=== PATIENT | male | born 1955 | race Two or more races ===

== ENCOUNTER 2017-03-19 15:43 | Emergency (ER) | payer MEDICARE, MEDICAID ==
[~2017-03-19] VITALS: Ht 167.6 cm; Wt 99.8 kg
[2017-03-19 15:53] VITALS: BP 131/75
[2017-03-19] MEDS ORDERED: IBUPROFEN 600 MG TABLET PO ONE ×2 (16:51→17:00)
[2017-03-19] MEDS ORDERED: HYDROCODONE/APAP 10/325MG 1 EA TABLET ONE (16:51)
[2017-03-19] MEDS ORDERED: HYDROCODONE/APAP 10/325MG 1 EA TABLET PO ONE (17:00)
== END 2017-03-19 17:17 | disposition home or self-care (01) ==
LOC: ER 15:55
DX: M54.5 Low back pain (principal); I11.0 Hypertensive heart disease with heart failure; I50.9 Heart failure, unspecified; K85.90 Acute pancreatitis without necrosis or infection, unspecified; E11.9 Type 2 diabetes mellitus without complications; Z98.890 Other specified postprocedural states
CPT/HCPCS: 99283; A4606; Z7610

== ENCOUNTER 2017-04-05 01:33 | Inpatient (IN) | payer MEDICARE, MEDICAID ==
[~2017-04-05] VITALS: Ht 167.6 cm; Wt 84.8 kg
[2017-04-05] MEDS ORDERED: MORPHINE SULFATE INJ 2 MG/ML DISP.SYRIN IV PRN (03:00)
[2017-04-05] MEDS ORDERED: Z GUARD REMEDY 2 OZ OINT TP PRN (03:00)
[2017-04-05] MEDS ORDERED: ACETAMINOPHEN 325 MG TABLET PO PRN (03:00)
[2017-04-05] MEDS ORDERED: MAGNESIUM HYDROXIDE 30 ML UDC PO PRN (03:00)
[2017-04-05] MEDS ORDERED: MAG HYDROX/AL HYDROX/SIMETH 30 ML UDC PO PRN (03:00)
[2017-04-05] MEDS ORDERED: HYDROCODONE/APAP 5/325MG 1 EACH TABLET PO PRN (03:00)
[2017-04-05] MEDS ORDERED: ONDANSETRON HCL/PF 4 MG/2 ML VIAL IVP PRN (03:00)
[2017-04-05] MEDS ORDERED: ZOLPIDEM TARTRATE 5 MG TABLET PO PRN (03:00)
[2017-04-05 05:00] VITALS: BP 140/84
--- NOTE | 2017-04-05 05:30 | NUR ---
TIP PUNCHER NOTE: RECEIVED PATIENT FROM [facility], NO ACUTE DISTRESS NOTED. BREATHING EVEN AND UNLABORED, NO SOB NOTED. IV TO RFA#20 STARTED WITHOUT COMPLICATION. PATIENT HOME MEDICATIONS ENTERED INTO MED RECONCILIATION. ORIENTED PATIENT TO ROOM AND USE OF CALL LIGHT. BED LOCKED AND IN LOWEST POSITION, CALL LIGHT IN REACH. WILL CONTINUE TO MONITOR.
[2017-04-05] MEDS ORDERED: ISOS30TA6 PO (05:32)
[2017-04-05] MEDS ORDERED: PANT40TA4 PO (05:32)
[2017-04-05] MEDS ORDERED: TAMS-12 PO (05:32)
[2017-04-05] MEDS ORDERED: GABA-534 PO (05:32)
[2017-04-05] MEDS ORDERED: LEVO50TA8 PO (05:32)
[2017-04-05] MEDS ORDERED: FINA5TAB11 PO (05:32)
[2017-04-05] MEDS ORDERED: RISP0.253 PO (05:32)
[2017-04-05] MEDS ORDERED: METO5TAB2 PO (05:32)
[2017-04-05] MEDS ORDERED: LISI40TA4 PO (05:32)
[2017-04-05] MEDS ORDERED: PREG100C PO (05:32)
[2017-04-05] MEDS ORDERED: METO50TA3 PO (05:32)
[2017-04-05] MEDS ORDERED: RISP1TAB7 PO (05:40)
[2017-04-05] MEDS ORDERED: INSU100V7 SQ (05:40)
[2017-04-05] MEDS ORDERED: ATOR10TA PO (05:40)
[2017-04-05] MEDS ORDERED: BUME1TAB4 PO (05:40)
[2017-04-05] MEDS ORDERED: TRAZ-147 PO (05:40)
[2017-04-05] MEDS ORDERED: INSU100V11 SQ (05:40)
[2017-04-05] MEDS ORDERED: AMLO10TA2 PO (05:42)
[2017-04-05] MEDS ORDERED: CLON0.3T PO (05:42)
[2017-04-05] MEDS ORDERED: CARV12.52 PO (05:48)
[2017-04-05 06:50] LABS: ALANINE AMINOTRANSFERASE 49 U/L (12-78); ALBUMIN 3.4 g/dL (3.4-5.0); ALKALINE PHOSPHATASE 79 U/L (46-116); AMYLASE 36 U/L (25-115); ASPARTATE AMINOTRANSFERASE 42 U/L (15-37); BILIRUBIN,TOTAL 0.2 mg/dL (0.2-1.0); CALCIUM, SERUM 9.4 mg/dL (8.5-10.1); CARBON DIOXIDE 31 mmol/L (21-32); CHLORIDE 103 mmol/L (98-107); CREATININE 1.4 mg/dL (0.6-1.3); GLUCOSE 209 mg/dL (74-106); LIPASE 65 U/L (73-393); MAGNESIUM 2.3 mg/dL (1.8-2.4); PHOSPHORUS 5.9 mg/dL (2.5-4.9); POTASSIUM 4.1 mmol/L (3.5-5.1); SODIUM SERUM 140 mmol/L (136-145); TOTAL PROTEIN, SERUM 7.6 g/dL (6.4-8.2); UREA NITROGEN, BLOOD 21 mg/dL (7-18)
[2017-04-05 06:53] LABS: TROPONIN I < 0.017 ng/mL (0.00-0.056)
[2017-04-05] MEDS ORDERED: CLON0.1T PO (06:55)
[2017-04-05] MEDS ORDERED: BUME2TAB3 PO (06:55)
[2017-04-05] MEDS ORDERED: ATOR80TA PO (06:55)
[2017-04-05] MEDS ORDERED: CARV25TA2 PO (06:55)
[2017-04-05] MEDS ORDERED: METO-304 PO (06:55)
[2017-04-05] MEDS ORDERED: LEVO88TA5 PO (06:55)
--- NOTE | 2017-04-05 07:00 | NUR ---
CUT OFF SAW OPERATOR METAL NOTE: PATIENT RESTING IN BED, NO ACUTE DISTRESS NOTED. BREATHING EVEN AND UNLABORED, NO SOB NOTED. IV TO RFA#[address] BED LOCKED AND IN LOWEST POSITION, CALL LIGHT IN REACH. WILL ENDORSE TO DAY NURSE TO CONTINUE TO MONITOR.
--- NOTE | 2017-04-05 07:10 | NUR ---
EMAIL PRODUCTION SPECIALIST INITIAL NOTES: PATIENT RESTING IN BED. NO SIGNS OF DISTRESS NOTED. NONLABORED BREATHING NOTED ON ROOM AIR. IV SITE PATENT AND INTACT. PATIENT ON TELE MONITORING WITH SR NOTED .BED IN LOWEST LOCKED POSITION. CALL LIGHT WITHIN REACH. WILL CONTINUE TO MONITOR.
[2017-04-05 07:58] LABS: BASOPHILS # (AUTO) 0.1 /CMM (0.0-0.2); BASOPHILS % (AUTO) 0.9 % (0.0-2.0); EOSINOPHILS # (AUTO) 0.1 /CMM (0.0-0.7); EOSINOPHILS % (AUTO) 2.5 % (0.0-6.0); HEMATOCRIT 36 % (39-51); HEMOGLOBIN 11.8 g/dL (13.5-17.5); LYMPHOCYTES # (AUTO) 2.7 /CMM (0.8-4.8); LYMPHOCYTES % (AUTO) 45.9 % (20.0-44.0); MEAN CORPUSCULAR HEMOGLOBIN 27 PG (26.0-33.0); MEAN CORPUSCULAR HGB CONC 33 g/dl (31.0-36.0); MEAN CORPUSCULAR VOLUME 81 fL (80-96); MONOCYTES # (AUTO) 0.5 /CMM (0.1-1.30); MONOCYTES % (AUTO) 9.5 % (2.0-12.0); NEUTROPHILS # (AUTO) 2.4 /CMM (1.8-8.9); NEUTROPHILS % (AUTO) 41.2 % (43.0-81.0); PLATELET COUNT (AUTO) 124 /CMM (150-450); RDW COEFFICIENT OF VARIATION 14.5 (11.5-15.0); RED BLOOD CELL COUNT(AUTO) 4.38 MIL/uL (4.5-6.0); WHITE BLOOD COUNT (AUTO) 5.8 K/uL (4.3-11.0)
[2017-04-05 08:00] VITALS: BP 110/70
[2017-04-05] MEDS: HYDROMORPHONE INJ 2 MG/ML DISP.SYRIN IV PRN ×4 (08:36→21:17)
[2017-04-05] MEDS ORDERED: DEXTROSE 50%-WATER 50 ML DISP.SYRIN IV PRN ×2 (10:00→13:30)
[2017-04-05] MEDS ORDERED: CARVEDILOL 25 MG TABLET PO SCH (11:30)
[2017-04-05] MEDS: BUMETANIDE (1 MG) 1 MG TABLET PO SCH ×2 (12:00→17:40)
[2017-04-05] MEDS: LISINOPRIL (20MG) 20 MG TABLET PO SCH (12:00)
[2017-04-05] MEDS: METOCLOPRAMIDE HCL 10 MG TABLET PO SCH ×2 (12:00→17:39)
[2017-04-05] MEDS: BLOOD SUGAR DIAGNOSTIC 1 EACH STRIP IN SCH ×3 (12:00→21:41)
[2017-04-05] MEDS ORDERED: *INSULIN REGULAR(HUMULIN R)HUM 100 UNIT/ML VIAL SQ PRN (13:30)
[2017-04-05] MEDS: INSULIN REGULAR, HUMAN 100 UNIT/ML 3 ML VIAL SQ PRN ×2 (13:53→17:57)
[2017-04-05] MEDS: IV NS 0.9% 1,000 ML IV PRN (13:55)
[2017-04-05 16:00] VITALS: BP 141/77
[2017-04-05] MEDS: risperiDONE 1 MG TABLET PO SCH (17:38)
[2017-04-05] MEDS: CLONIDINE HCL 0.1 MG TABLET PO SCH (17:40)
[2017-04-05] MEDS: BLOOD SUGAR DIAGNOSTIC 1 EACH STRIP VI SCH ×2 (18:00→21:47)
[2017-04-05] MEDS: INSULIN ASPART HUMALOG/NOVOLOG 100 UNIT/ML CARTRIDGE SQ SCH (19:00)
--- NOTE | 2017-04-05 19:30 | NUR ---
AREA RELIEF PILOT CLOSING NOTES: PATIENT RESTING IN BED. NO SIGNS OF DISTRESS NOTED. NONLABORED BREATHING NOTED ON ROOM AIR. IV SITE PATENT AND INTACT .BED IN LOWEST LOCKED POSITION. CALL LIGHT WITHIN REACH. IV HYDRATION RUNNING PER DR MITCHELL'S ORDERS. DR MITCHELL ALSO ORDERED A MODERATE SLIDING SCALE FOR THE PATIENT. PATIENT STATES THAT PAIN IS BETTER WITH THE DILAUDID. PATIENT GIVEN MILK OF MAGNESIA EARLIER DUE TO CONSTIPATION, PATIENT STATES HAVING ONE BOWEL MOVEMENT RIGHT NOW THAT IS SMALL IN AMOUNT. PATIENT ENCOURAGED TO TURN AND REPOSITION DURING SHIFT, KEPT CLEAN AND DRY. ENDORSED TO NEXT SHIFT
[2017-04-05 20:00] VITALS: BP 135/69
--- NOTE | 2017-04-05 20:00 | NUR ---
MS TL INITIAL NOTES RECEIVED PT IN BED AWAKE AND ALERT WITH IVF INFUSING AT THIS TIME, NO SIGNS OF ANY ACUTE DISTRESS NOTED. PT STATED HE HAD BOWEL MOVEMENT ALREADY BUT SMALL AMOUNT. I TOLD HIM MAYBE LATER MORE COMING OUT BECAUSE HE JUST HAD HIS MOM MEDICATION. KEPT HIM WARM AND COMFORTABLE AT ALL TIMES. PLACE CALL LIGHT AT REACH. WILL CONTINUE TO MONITOR.
[2017-04-05] MEDS: CARVEDILOL 12.5 MG TABLET PO SCH (21:40)
[2017-04-05] MEDS: GABAPENTIN 300 MG CAPSULE PO SCH (21:40)
[2017-04-05] MEDS: INSULIN DETEMIR 100 UNIT/ML CARTRIDGE SQ SCH (21:53)
[2017-04-05] MEDS ORDERED: PANTOPRAZOLE 40 MG TABLET.DR PO SCH (22:00)
[2017-04-05] MEDS ORDERED: TAMSULOSIN 0.4 MG CAP.SR.24H PO SCH (22:00)
[2017-04-05] MEDS ORDERED: TRAZODONE 50 MG TABLET PO SCH (22:00)
[2017-04-05] MEDS ORDERED: PREGABALIN 100 MG CAPSULE PO SCH (22:00)
--- NOTE | 2017-04-05 23:00 | NUR ---
NEON MOLDER/NOTES PT CHECKED AND COMPLAINING OF CHEST PAIN, ACHING, BLOOD PRESSURE TAKEN BP 143/56, HEART RATE 71, RESP 18, O2 SAT 100% , WITH 02 AT 2 LITERS VIA NC. PUT IN TELE MONITOR FOR A WHILE AND SINUS RHYTHM HEART RATE 73, NO SOB , NO SIGNS OF ANY ACUTE DISTRESS AND NO SIGNS OF ANY CONGESTION NOTED. PT INSISTING HE GOT NITRO PASTE WHEN HE'S IN EMERGENCY ROOM WHEN HE HAD CHEST PAIN. I TOLD HIM I WILL CALL HIS MD TO LET HIM KNOW. AND PT STATED "OK ".
--- NOTE | 2017-04-05 23:30 | NUR ---
BEAN SPROUT GROWER /NOTES SPOKE TO DR MOORE GOT ORDERED NOTED AND CARRIED OUT.
--- NOTE | 2017-04-06 00:20 | NUR ---
INFORMATION RECEPTIONIST NOTES PT SLEEPING COMFORTABLY IN BED AT THIS TIME, RESPIRATION EVEN AND NON-LABORED, NOT IN ANY ACUTE DISTRESS OR ANY DISCOMFORT NOTED. IVF STILL INFUSING. KEPT HIM WARM AND COMFORTABLE AT ALL TIMES. PLACE CALL LIGHT AT REACH.
[2017-04-06] MEDS ORDERED: NITROGLYCERIN PACKET 1 GM PACKET ONE (00:48)
--- NOTE | 2017-04-06 00:53 | NUR ---
VOCATIONAL TRAINING INSTRUCTOR/ NOTES PT WOKE UP COMPLAINING OF CHEST PAIN AND ASKING FOR HIS NITRO, VITAL SIGNS TAKEN 155/79, HEART RATE 68. NITRO 1/2 INCH APPLIED TO HIS CHEST WALL , BLOOD SUGAR CHECKED 233. INSULIN GIVEN ORDERED. WILL CONTINUE TO MONITOR.
[2017-04-06] MEDS: HYDROMORPHONE INJ 2 MG/ML DISP.SYRIN IV PRN ×3 (01:22→10:42)
--- NOTE | 2017-04-06 05:56 | NUR ---
ms/rn notes Patient reported pain, with grimace and guarding and moaning in his abdomen, administer pain medication dialaudid ivp and will monitor effectiveness.
[2017-04-06] MEDS: BLOOD SUGAR DIAGNOSTIC 1 EACH STRIP VI SCH (05:57)
[2017-04-06] MEDS: BLOOD SUGAR DIAGNOSTIC 1 EACH STRIP IN SCH (05:57)
[2017-04-06] MEDS: INSULIN REGULAR, HUMAN 100 UNIT/ML 3 ML VIAL SQ PRN (05:59)
[2017-04-06] MEDS: IV NS 0.9% 1,000 ML IV PRN (05:59)
[2017-04-06 06:29] LABS: BASOPHILS % (AUTO) 0.5 % (0.0-2.0); EOSINOPHILS # (AUTO) 0.1 /CMM (0.0-0.7); EOSINOPHILS % (AUTO) 2.2 % (0.0-6.0); HEMATOCRIT 33 % (39-51); HEMOGLOBIN 11.3 g/dL (13.5-17.5); LYMPHOCYTES # (AUTO) 2.4 /CMM (0.8-4.8); LYMPHOCYTES % (AUTO) 45.3 % (20.0-44.0); MEAN CORPUSCULAR HEMOGLOBIN 28 PG (26.0-33.0); MEAN CORPUSCULAR HGB CONC 35 g/dl (31.0-36.0); MEAN CORPUSCULAR VOLUME 81 fL (80-96); MONOCYTES # (AUTO) 0.4 /CMM (0.1-1.30); MONOCYTES % (AUTO) 8.2 % (2.0-12.0); NEUTROPHILS # (AUTO) 2.3 /CMM (1.8-8.9); NEUTROPHILS % (AUTO) 43.8 % (43.0-81.0); PLATELET COUNT (AUTO) 108 /CMM (150-450); RDW COEFFICIENT OF VARIATION 14.5 (11.5-15.0); RED BLOOD CELL COUNT(AUTO) 4.02 MIL/uL (4.5-6.0); WHITE BLOOD COUNT (AUTO) 5.2 K/uL (4.3-11.0)
[2017-04-06 06:55] LABS: CALCIUM, SERUM 8.6 mg/dL (8.5-10.1); CREATININE 1.2 mg/dL (0.6-1.3); MAGNESIUM 2.3 mg/dL (1.8-2.4); PHOSPHORUS 4.9 mg/dL (2.5-4.9); POTASSIUM 3.8 mmol/L (3.5-5.1)
--- NOTE | 2017-04-06 07:00 | NUR ---
RN NOTES: RECEIVED PATIENT RESTING IN BED. NO SIGNS OF DISTRESS NOTED. NONLABORED BREATHING NOTED ON ROOM AIR. PATIENT DENIES PAIN AT THE MOMENT. IV SITE PATENT AND INTACT. BED IN LOWEST LOCKED POSITION. CALL LIGHT WITHIN REACH. WILL CONTINUE TO MONITOR
--- NOTE | 2017-04-06 07:15 | NUR ---
MS PREDATORY ANIMAL TRAPPER CLOSING NOTES PT RESTING AT THIS TIME WITHOUT ANY ACUTE DISTRESS NOTED AT THIS TIME. IVF STILL INFUSING. ALL DUE MEDS GIVEN AND ALL NEEDS MET. SLEPT AFTER PAIN MEDS GIVEN . KEPT HIM WARM AND COMFORTABLE AT ALL TIMES. PLACE CALL LIGHT AT REACH. ENDORSE TO AM NURSE FOR CONTINUITY OF CARE. PLACE CALL LIGHT AT REACH.
[2017-04-06] MEDS ORDERED: NITROGLYCERIN 30 GM TUBE TP PRN ×2 (07:40)
[2017-04-06 08:00] VITALS: BP 153/78
--- NOTE | 2017-04-06 08:29 | NUR ---
WOUND CARE CONSULT: PT PRESENTS WITH LARGE CALLUS TO RT FOOT. RECOMMEND PODIATRY CONSULT. PT NOTED TO HAVE FEW SCRATCH LEIJA ON BUTTOCKS NEAR GLUTEAL CREASE. CURRENT CATHERINE SCORE IS 21. ALL SKIN PROTECTION MEASURES DISCUSSED WITH NURSING STAFF. WILL SEE PRN. Addendum: 04/06/17 at 0830 by CORINA SINHG WNDNU Amended: Links added.
[2017-04-06] MEDS ORDERED: ISOSORBIDE MONONITRATE (30MG) 30 MG TAB.SR.24H PO SCH (09:00)
[2017-04-06] MEDS ORDERED: METOPROLOL SUCCINATE 50 MG TAB.SR.24H PO SCH (09:00)
[2017-04-06] MEDS ORDERED: LEVOTHYROXINE SODIUM 88 MCG TABLET PO SCH (09:00)
[2017-04-06] MEDS ORDERED: ATORVASTATIN 40 MG TABLET PO SCH (09:00)
[2017-04-06] MEDS ORDERED: AMLODIPINE BESYLATE 10 MG TABLET PO SCH (09:00)
[2017-04-06] MEDS ORDERED: FINASTERIDE (5 MG) 5 MG TABLET PO SCH (09:00)
[2017-04-06] MEDS: METOCLOPRAMIDE HCL 10 MG TABLET PO SCH (09:06)
[2017-04-06] MEDS: GABAPENTIN 300 MG CAPSULE PO SCH (09:07)
[2017-04-06] MEDS ORDERED: HYDR-552 PO (09:08)
[2017-04-06] MEDS: LISINOPRIL (20MG) 20 MG TABLET PO SCH (09:08)
[2017-04-06] MEDS: BUMETANIDE (1 MG) 1 MG TABLET PO SCH (09:08)
[2017-04-06] MEDS: CLONIDINE HCL 0.1 MG TABLET PO SCH (09:08)
[2017-04-06] MEDS: risperiDONE 1 MG TABLET PO SCH (09:09)
[2017-04-06 09:10] VITALS: BP 160/77
[2017-04-06] MEDS: CARVEDILOL 12.5 MG TABLET PO SCH (09:10)
[2017-04-06] MEDS: INSULIN DETEMIR 100 UNIT/ML CARTRIDGE SQ SCH (09:48)
[2017-04-06] MEDS: INSULIN ASPART HUMALOG/NOVOLOG 100 UNIT/ML CARTRIDGE SQ SCH (09:55)
--- NOTE | 2017-04-06 12:30 | NUR ---
RN NOTES: PATIENT DISCHARGED PER MD ORDERS. PATIENT STABLE. NONLABORED BREATHING NOTED ON ROOM AIR. VS WNL. BS ASSESSED BEFORE PATIENT LEAVING THE HOSPITAL. PATIENT STATED THAT HE WILL GO EAT, USE "LYFT" TO GO HOME. IV LINE REMOVED, PRESSURE APPLIED WELL GAUZE. PATIENT HAS RECEIVED EXISTCARE INSTRUCTION, VERBALIZES UNDERSTANDING. PRESCRIPTION GIVEN TO PATIENT. DR BURTON DID A DEBRIDEMENT ON LARGE CALLUS ON RIGHT FOOT. SCANT SANGINUOUS DRAINAGE NOTED ON. PATIENT ADVISED TO KEEP IT OPEN AND MONITOR FOR BLEEDING BEFORE LEAVING. HOWEVER, HE REFUSED AND PUT ON HIS SOCKS AND HIS SHOES. PATIENT ALSO REFUSED PICTURES TO BE TAKEN. PATIENT REFUSED A STAFF MEMBER TO ACCOMPANY HIM TO THE HOSPITAL'S DOOR. PATIENT GIVEN VALULABLES. PATIENT AMBULATORY AND TOLERATING THAT WELL. PATIENT LEFT WITH HIS BELONGINGS, CAMPBELL PAPERWORK, EXISTCARE AND PRESCRIPTION.
== END 2017-04-06 12:30 | disposition home or self-care (01) | DRG 205 ==
LOC: TELE 04:08 → MED 10:15
PROVIDERS: ADMIT Internal Medicine; ATTEND Internal Medicine
DX: M94.0 Chondrocostal junction syndrome [Tietze] (principal); N17.0 Acute kidney failure with tubular necrosis; E11.22 Type 2 diabetes mellitus with diabetic chronic kidney disease; E11.42 Type 2 diabetes mellitus with diabetic polyneuropathy; K86.1 Other chronic pancreatitis; E66.01 Morbid (severe) obesity due to excess calories; I13.0 Hypertensive heart and chronic kidney disease with heart failure and stage 1 through stage 4 chronic kidney disease, or unspecified chronic kidney disease; I50.32 Chronic diastolic (congestive) heart failure; N18.3 Chronic kidney disease, stage 3 (moderate); I25.10 Atherosclerotic heart disease of native coronary artery without angina pectoris; B35.1 Tinea unguium; E03.9 Hypothyroidism, unspecified; K59.00 Constipation, unspecified; L84 Corns and callosities; N40.0 Benign prostatic hyperplasia without lower urinary tract symptoms; Z83.3 Family history of diabetes mellitus; Z82.49 Family history of ischemic heart disease and other diseases of the circulatory system; Z68.30 Body mass index [BMI] 30.0-30.9, adult; Z76.5 Malingerer [conscious simulation]; E11.65 Type 2 diabetes mellitus with hyperglycemia; Z72.0 Tobacco use
CPT/HCPCS: 36415; 80048-TC; 80053-TC; 82150-TC; 82962-TC; 83690-TC; 83735-TC; 83880; 84100-TC; 84484-TC; 85025-TC; 87081-TC; 93307-TC; A6402; J1170; J1815; J7030; J8597; Z7610

== ENCOUNTER 2017-04-12 12:39 | Outpatient (CLI) | payer MEDICARE, MEDICAID ==
[~2017-04-12 12:39] MED LIST: AMLO10TA2 PO; ATOR80TA PO; BUME2TAB3 PO; CARV25TA2 PO; CLON0.1T PO; FINA5TAB11 PO; GABA-534 PO; HYDR-552 PO; INSU100V11 SQ; INSU100V7 SQ; ISOS30TA6 PO; LEVO88TA5 PO; LISI40TA4 PO; METO-357 PO; METO5TAB2 PO; PANT40TA4 PO; PREG100C PO; RISP1TAB7 PO; TAMS-12 PO; TRAZ-147 PO
== END 2017-04-12 23:59 | disposition home or self-care (01) ==
LOC: MSC 12:39
PROVIDERS: ATTEND Internal Medicine
DX: I25.10 Atherosclerotic heart disease of native coronary artery without angina pectoris (principal); I13.0 Hypertensive heart and chronic kidney disease with heart failure and stage 1 through stage 4 chronic kidney disease, or unspecified chronic kidney disease; I50.9 Heart failure, unspecified; E11.22 Type 2 diabetes mellitus with diabetic chronic kidney disease; N18.9 Chronic kidney disease, unspecified; E03.9 Hypothyroidism, unspecified; F32.9 Major depressive disorder, single episode, unspecified; F41.9 Anxiety disorder, unspecified; G47.00 Insomnia, unspecified; N40.0 Benign prostatic hyperplasia without lower urinary tract symptoms; E66.01 Morbid (severe) obesity due to excess calories; S91.309A Unspecified open wound, unspecified foot, initial encounter; Z98.890 Other specified postprocedural states; Z87.891 Personal history of nicotine dependence; Z79.899 Other long term (current) drug therapy; Y93.89 Activity, other specified; X58.XXXA Exposure to other specified factors, initial encounter; Y92.89 Other specified places as the place of occurrence of the external cause; Y99.8 Other external cause status

== ENCOUNTER 2017-04-12 14:05 | Outpatient (CLI) | payer MEDICARE, MEDICAID ==
[~2017-04-12 14:05] MED LIST changes: +METO-304 PO; -METO-357 PO
== END 2017-04-12 23:59 | disposition home or self-care (01) ==
LOC: CT 14:05
PROVIDERS: ATTEND Anesthesiology
DX: K40.20 Bilateral inguinal hernia, without obstruction or gangrene, not specified as recurrent (principal); K57.90 Diverticulosis of intestine, part unspecified, without perforation or abscess without bleeding; J98.11 Atelectasis; I51.7 Cardiomegaly; K76.89 Other specified diseases of liver; R59.0 Localized enlarged lymph nodes; I70.0 Atherosclerosis of aorta; K85.90 Acute pancreatitis without necrosis or infection, unspecified; M47.899 Other spondylosis, site unspecified; Z90.49 Acquired absence of other specified parts of digestive tract

== ENCOUNTER 2017-05-12 00:47 | Emergency (ER) | payer MEDICARE, OTHER ==
[~2017-05-12] VITALS: Ht 172.7 cm; Wt 83.9 kg
[~2017-05-12 00:47] MED LIST changes: -METO-304 PO; +METO-357 PO
--- NOTE | 2017-05-12 06:15 | NUR ---
TO BED 4 AMBULATORY C/O WORSENING INTERMITTENT ABDOMINAL PAIN, HX OF PANCREATITIS X13 YEARS. PT AAOX4 NO ACUTE DISTRESS NOTED, RESP EVEN AND UNLABORED. PENDING ER MD GARZA.
--- NOTE | 2017-05-12 06:22 | NUR ---
ER MD AT BEDSIDE TO EVAL PT WITH ORDERS RECEIVED.
[2017-05-12] MEDS ORDERED: ONDANSETRON HCL/PF 4 MG/2 ML VIAL ONE (06:26)
[2017-05-12] MEDS ORDERED: MORPHINE SULFATE INJ 4 MG/ML DISP.SYRIN ONE (06:26)
[2017-05-12] MEDS ORDERED: MORPHINE SULFATE INJ 2 MG/ML DISP.SYRIN IV ONE (06:30)
[2017-05-12] MEDS ORDERED: IV NS 0.9% 1,000 ML BAG IV ONE (06:30)
[2017-05-12] MEDS ORDERED: ONDANSETRON HCL/PF 4 MG/2 ML VIAL IVP ONE (06:30)
--- NOTE | 2017-05-12 06:33 | NUR ---
RN AT BEDSIDE TO MEDICATE PT.
[2017-05-12 06:44] LABS: BASOPHILS % (AUTO) 0.9 % (0.0-2.0); EOSINOPHILS # (AUTO) 0.1 /CMM (0.0-0.7); EOSINOPHILS % (AUTO) 1.7 % (0.0-6.0); HEMATOCRIT 35 % (39-51); HEMOGLOBIN 11.9 g/dL (13.5-17.5); LYMPHOCYTES # (AUTO) 1.8 /CMM (0.8-4.8); LYMPHOCYTES % (AUTO) 33.1 % (20.0-44.0); MEAN CORPUSCULAR HEMOGLOBIN 27 PG (26.0-33.0); MEAN CORPUSCULAR HGB CONC 34 g/dl (31.0-36.0); MEAN CORPUSCULAR VOLUME 80 fL (80-96); MONOCYTES # (AUTO) 0.3 /CMM (0.1-1.30); MONOCYTES % (AUTO) 6.2 % (2.0-12.0); NEUTROPHILS # (AUTO) 3.2 /CMM (1.8-8.9); NEUTROPHILS % (AUTO) 58.1 % (43.0-81.0); PLATELET COUNT (AUTO) 121 /CMM (150-450); RDW COEFFICIENT OF VARIATION 14.1 (11.5-15.0); WHITE BLOOD COUNT (AUTO) 5.4 K/uL (4.3-11.0)
[2017-05-12 06:55] LABS: CALCIUM, SERUM 8.9 mg/dL (8.5-10.1); CREATININE 1.1 mg/dL (0.6-1.3); POTASSIUM 3.2 mmol/L (3.5-5.1)
[2017-05-12 07:01] LABS: ALBUMIN 3.2 g/dL (3.4-5.0); BILIRUBIN,TOTAL 0.3 mg/dL (0.2-1.0); TOTAL PROTEIN, SERUM 7.3 g/dL (6.4-8.2)
--- NOTE | 2017-05-12 07:04 | NUR ---
REPORT GIVEN TO AM SHIFT CORAL LUGO.
[2017-05-12] MEDS ORDERED: KETOROLAC TROMETHAMINE INJ 30 MG/ML VIAL IV ONE (08:00)
[2017-05-12] MEDS ORDERED: KETOROLAC TROMETHAMINE INJ 30 MG/ML VIAL ONE (08:05)
[2017-05-12 08:10] VITALS: BP 147/74
--- NOTE | 2017-05-12 08:12 | NUR ---
IV removed. Catheter intact and site benign. Pressure and 4x4 applied to site. No bleeding noted.Patient discharged to home in stable condition. Written and verbal after care instructions given. Patient verbalizes understanding of instruction. prescriptions given. no further complaints.
== END 2017-05-12 08:11 | disposition home or self-care (01) ==
LOC: ER 00:50
DX: R10.9 Unspecified abdominal pain (principal); E11.9 Type 2 diabetes mellitus without complications; I10 Essential (primary) hypertension; K85.90 Acute pancreatitis without necrosis or infection, unspecified; Z79.4 Long term (current) use of insulin; Z90.89 Acquired absence of other organs
CPT/HCPCS: 36415; 80048; 80076; 83690; 85025; 96361; 96374; 96375; 99284; A4606; J1885; J2270; J2405; J7030; Z7610